=== PATIENT | female | born 1970 | race Caucasian/White ===

== ENCOUNTER → 2019-05-14 12:49 | Outpatient (CLI) | payer BC ==
[2016-03-04 10:52] VITALS: BMI 44.9
[~2019-05-14 12:49] MED LIST: CYMBALTA30 MG PO; GLUCOPHAGE500 MG PO; LOTENSIN20 MG PO; NEURONTIN 300300 MG PO; TENORMIN50 MG PO; ZYLOPRIM300 MG PO
== END | disposition home or self-care (01) ==
LOC: D.LABREF 12:49
DX: M86.9 Osteomyelitis, unspecified (principal)

== ENCOUNTER → 2019-05-21 15:12 | Outpatient (CLI) | payer BC ==
[2016-03-04 10:52] VITALS: BMI 44.9
[2019-05-21 17:43] LABS: CREATINE KINASE 509 UL (21-215)
[2019-05-21 17:51] LABS: CKMB 3.6 U/L (0.0-3.6)
== END | disposition home or self-care (01) ==
LOC: D.LABREF 15:12
DX: M86.9 Osteomyelitis, unspecified (principal)

== ENCOUNTER → 2019-05-23 12:20 | Outpatient (CLI) | payer BC ==
[2016-03-04 10:52] VITALS: BMI 44.9
[2019-05-23 13:59] LABS: CREATINE KINASE 321 UL (21-215)
[2019-05-23 14:00] LABS: CKMB 2.8 U/L (0.0-3.6)
== END | disposition home or self-care (01) ==
LOC: D.LABREF 12:20
PROVIDERS: ATTEND Specialist
DX: M86.9 Osteomyelitis, unspecified (principal)

== ENCOUNTER → 2019-05-25 10:51 | Outpatient (CLI) | payer BC ==
[2016-03-04 10:52] VITALS: BMI 44.9
== END | disposition home or self-care (01) ==
LOC: D.LABREF 10:51
PROVIDERS: ATTEND Specialist
DX: M86.9 Osteomyelitis, unspecified (principal)

== ENCOUNTER → 2019-05-28 11:44 | Outpatient (CLI) | payer BC ==
[2016-03-04 10:52] VITALS: BMI 44.9
== END | disposition home or self-care (01) ==
LOC: D.LABREF 11:44
PROVIDERS: ATTEND Specialist
DX: M86.9 Osteomyelitis, unspecified (principal)

== ENCOUNTER → 2019-06-04 10:46 | Outpatient (CLI) | payer BC ==
[2016-03-04 10:52] VITALS: BMI 44.9
== END | disposition home or self-care (01) ==
LOC: D.LABREF 10:46
PROVIDERS: ATTEND Specialist
DX: M86.9 Osteomyelitis, unspecified (principal)

== ENCOUNTER → 2019-06-11 11:34 | Outpatient (CLI) | payer BC ==
[2016-03-04 10:52] VITALS: BMI 44.9
== END | disposition home or self-care (01) ==
LOC: D.LABREF 11:34
PROVIDERS: ATTEND Internal Medicine Infectious Disease
DX: M86.9 Osteomyelitis, unspecified (principal)